=== PATIENT | male | born 1985 | race Caucasian/White ===

== ENCOUNTER 2017-02-25 23:33 | Emergency (ER) | payer SELFPAY ==
[~2017-02-25] VITALS: Ht 175.3 cm; Wt 80.0 kg
[2017-02-25 23:51] VITALS: BP_DIAS 73; PULSE 95; RESP 18; TEMP 97.2; O2SAT 99
[2017-02-25 23:54] VITALS: O2SAT 99
[2017-02-26] MEDS ORDERED: SODIUM CHLORIDE 0.9% FLUSH 10 ML FLUSH IVF PRN
--- NOTE | 2017-02-26 | PD ---
HPI Chief Complaint: Chest Pain Time Seen by Provider: 23:56 Travel History International Travel<30 days: No Contact w/Intl Traveler<30days: No Traveled to known affect area: No History of Present Illness HPI Patient is a 31-year-old male brought into the emergency department by the [employer] for medical clearance. Patient reported chest pain approximately one hour prior to arrival while in police custody patient states the pain radiates across his chest. He states the pain is a 6 out of 10 , he states it hurts to take a deep breath. Patient states that he was told he had a mild heart attack several years ago, he denies any IV or illicit drug use. He does endorse tobacco use. He also has been drinking alcohol today while fishing with his friends. Pain does not radiate to his arm or jaw, he has no shortness of breath, abdominal pain, nausea, headache. PFSH Past Medical History Myocardial Infarction: Yes (MILD PER PATIENT) ?: Not Past Surgical History Other Surgery: Yes (HAND SURGERY ) Social History Alcohol Use: Yes Tobacco Use: Yes Substance Use: No Allergies-Medications (Allergen,Severity, Reaction): Coded Allergies: No Known Allergies (Unverified , 02/25/17) Review of Systems Except as stated in HPI: all other systems reviewed are Neg HENT: No: Headaches Cardiovascular: Positive: Chest Pain or Discomfort Respiratory: Positive: Pleuritic Pain, No: Shortness of Breath Gastrointestinal: No: Nausea, Vomiting, Abdominal Pain Musculoskeletal: Positive: Myalgias Skin: Positive Change in Pigmentation (SUNBURN) Physical Exam Narrative GENERAL: Well-developed, well-nourished, intoxicated-appearing male. Resting in no acute distress. SKIN: Focused skin assessment warm/dry. Patient has sunburn to anterior chest wall, upper back, bilateral upper arms. HEAD: Atraumatic. Normocephalic. EYES: Pupils equal and round. No scleral icterus. No injection or drainage. ENT: No nasal bleeding or discharge. Mucous membranes pink and moist. NECK: Trachea midline. No JVD. CARDIOVASCULAR: Tachycardic. No murmur appreciated. RESPIRATORY: No accessory muscle use. Clear to auscultation. Breath sounds equal bilaterally. GASTROINTESTINAL: Abdomen soft, non-tender, nondistended. Hepatic and splenic margins not palpable. MUSCULOSKELETAL: No obvious deformities. No clubbing. No cyanosis. No edema. NEUROLOGICAL: Awake and alert. No obvious cranial nerve deficits. Motor grossly within normal limits. Normal speech. PSYCHIATRIC: Appropriate mood and affect; insight and judgment normal. Data Data Last Documented VS Vital Signs Date Time Temp Pulse Resp B/P Pulse Ox O2 Delivery O2 Flow Rate FiO2 02/25/17 23:54 99 02/25/17 23:51 97.2 95 18 /73 Orders Electrocardiogram (02/25/17 23:51) Ckmb (Isoenzyme) Profile (02/25/17 23:51) Complete Blood Count With Diff (02/25/17 23:51) Comprehensive Metabolic Panel (02/25/17 23:51) Magnesium (Mg) (02/25/17 23:51) Prothrombin Time / Inr (Pt) (02/25/17:51) Act Partial Throm Time (Ptt) (02/25/17 23:51) Troponin I (02/25/17 23:51) Chest, Single Ap (02/25/17 23:51) Ecg Monitoring (02/25/17 23:51) Iv Access Insert/Monitor (02/25/17 23:51) Oximetry (02/25/17 23:51) Sodium Chloride 0.9% Flush (Ns Flush) (02/26/17 00:00) Alcohol (Ethanol) (02/25/17 23:51) Sodium Chlor 0.9% 1000 Ml Inj (Ns 1000 M (02/26/17 00:00) CKMB (02/25/17 23:59) CKMB% (02/25/17 23:59) Sodium Chlor 0.9% 1000 Ml Inj (Ns 1000 M (02/26/17 01:15) Labs Laboratory Tests Test 02/25/17 23:59 White Blood Count 7.1 TH/MM3 Red Blood Count 4.78 MIL/MM3 Hemoglobin 14.9 GM/DL Hematocrit 43.7 % Mean Corpuscular Volume 91.6 FL Mean Corpuscular Hemoglobin 31.1 PG Mean Corpuscular Hemoglobin 34.0 % Concent Red Cell Distribution Width 15.0 % Platelet Count 217 TH/MM3 Mean Platelet Volume 8.0 FL Neutrophils (%) (Auto) 26.2 % Lymphocytes (%) (Auto) 60.5 % Monocytes (%) (Auto) 9.5 % Eosinophils (%) (Auto) 3.1 % Basophils (%) (Auto) 0.7 % Neutrophils # (Auto) 1.9 TH/MM3 Lymphocytes # (Auto) 4.3 TH/MM3 Monocytes # (Auto) 0.7 TH/MM3 Eosinophils # (Auto) 0.2 TH/MM3 Basophils # (Auto) 0.1 TH/MM3 CBC Comment AUTO DIFF Prothrombin Time 10.3 SEC Prothromb Time International 0.9 RATIO Ratio Activated Partial 30.8 SEC Thromboplast Time Anion Gap 12 MEQ/L Estimat Glomerular Filtration 97 ML/MIN Rate Total Bilirubin 0.2 MG/DL Alanine Aminotransferase 149 U/L (ALT/SGPT) Alkaline Phosphatase 82 U/L Total Creatine Kinase 2723 U/L Creatine Kinase MB 2.4 NG/ML Creatine Kinase MB % 0.1 % Troponin I LESS THAN 0.02 NG/ML Total Protein 7.7 GM/DL Ethyl Alcohol Level 75 MG/DL MDM Medical Decision Making Medical Screen Exam Complete: Yes Emergency Medical Condition: Yes Interpretation(s) Last Impressions Chest X-Ray 02/25/17 7131 Signed Impressions: Service Date/Time: Sunday, February 26, 2017 00:11 - CONCLUSION: No acute disease. Jason Coleman MD Laboratory Tests Test 02/25/17 23:59 White Blood Count 7.1 TH/MM3 Red Blood Count 4.78 MIL/MM3 Hemoglobin 14.9 GM/DL Hematocrit 43.7 % Mean Corpuscular Volume 91.6 FL Mean Corpuscular Hemoglobin 31.1 PG Mean Corpuscular Hemoglobin 34.0 % Concent Red Cell Distribution Width 15.0 % Platelet Count 217 TH/MM3 Mean Platelet Volume 8.0 FL Neutrophils (%) (Auto) 26.2 % Lymphocytes (%) (Auto) 60.5 % Monocytes (%) (Auto) 9.5 % Eosinophils (%) (Auto) 3.1 % Basophils (%) (Auto) 0.7 % Neutrophils # (Auto) 1.9 TH/MM3 Lymphocytes # (Auto) 4.3 TH/MM3 Monocytes # (Auto) 0.7 TH/MM3 Eosinophils # (Auto) 0.2 TH/MM3 Basophils # (Auto) 0.1 TH/MM3 CBC Comment AUTO DIFF Prothrombin Time 10.3 SEC Prothromb Time International 0.9 RATIO Ratio Activated Partial 30.8 SEC Thromboplast Time Anion Gap 12 MEQ/L Estimat Glomerular Filtration 97 ML/MIN Rate Total Bilirubin 0.2 MG/DL Alanine Aminotransferase 149 U/L (ALT/SGPT) Alkaline Phosphatase 82 U/L Total Creatine Kinase 2723 U/L Creatine Kinase MB 2.4 NG/ML Creatine Kinase MB % 0.1 % Troponin I LESS THAN 0.02 NG/ML Total Protein 7.7 GM/DL Ethyl Alcohol Level 75 MG/DL Vital Signs Date Time Temp Pulse Resp B/P Pulse Ox O2 Delivery O2 Flow Rate FiO2 02/25/17 23:54 99 02/25/17 23:51 97.2 95 18 / 99 Differential Diagnosis Chest wall pain versus ACS versus electrolyte abnormality versus acute intoxication versus malingering Narrative Course Patient is a 31-year-old male currently in police custody presenting with chest pain that started after he was arrested. Pain is reproducible on palpation to anterior chest wall, patient is also sunburn from fishing all day. Patient appears intoxicated alcohol use today. Labs and imaging ordered and pending. Chest X-ray shows no acute disease EKG shows sinus rhythm with a rate of 95 CBC is unremarkable Unremarkable coags Chemistry with elevated CK at 2723, a second liter of IV fluids ordered. The metabolic panel was not crossing over the computer system, discussed with [employer] who sent a printed copy of the chemistry results. BUN and creatinine 7 /0.91, GFR is 97, glucose 129, albumin 3.8, calcium 8.2, magnesium 2.1, alkaline phosphatase 82, AST 151, ALT 149, sodium 140, potassium 3.7, chloride 105, carbon dioxide 23.0, anion gap 12, CK-MB 2.4, troponin less than 0.02, total bilirubin 0.2. Alcohol level is 75. Patient has been resting comfortably since he presented to the emergency department. Dr. Rinaldi discussed with Dr. Alcantara, after second liter of IV fluids are completed patient will be discharged to law enforcement. Patient was encouraged to increase fluid intake, avoid excessive alcohol intake. He was encouraged to return to emergency department for any new or worsening symptoms. Patient verbalized understanding of instructions. Patient is stable for discharge. Diagnosis Primary Impression: Rhabdomyolysis Qualified Code: M62.82 - Non-traumatic rhabdomyolysis Additional Impressions: Alcohol intoxication Qualified Code: F10.920 - Alcohol intoxication, uncomplicated Chest wall pain Referrals: [facility] Patient Instructions: Chest Wall Pain (ED), General Instructions, Rhabdomyolysis (ED) Additional Instructions: Increase fluid intake Avoid alcohol intake Follow-up with primary doctor or at the [facility] Return to emergency department for any new or worsening symptoms Med/Other Pt SpecificInfo: No Change to Meds Disposition: [address] [employer] Condition: Stable Bhavana Rojas Feb 26, 2017 00:00
[2017-02-26 00:27] LABS: AUTOMATED NEUTROPHIL # 1.9 TH/MM3 (1.8-7.7); BASOPHIL # 0.1 TH/MM3 (0-0.2); BASOPHIL % 0.7 % (0.0-2.0); EOSINOPHIL # 0.2 TH/MM3 (0-0.4); EOSINOPHIL % 3.1 % (0.0-4.0); HEMATOCRIT 43.7 % (39.0-51.0); LYMPH % 60.5 % (9.0-44.0); LYMPHOCYTE # 4.3 TH/MM3 (1.0-4.8); MEAN CELL VOLUME 91.6 FL (80.0-100.0); MEAN CORPUSCULAR HEMOGLOBIN 31.1 PG (27.0-34.0); MONO % 9.5 % (0.0-8.0); NEUT % 26.2 % (16.0-70.0); PLATELET COUNT 217 TH/MM3 (150-450); RED BLOOD COUNT 4.78 MIL/MM3 (4.50-5.90); WHITE BLOOD COUNT 7.1 TH/MM3 (4.0-11.0)
[2017-02-26 00:28] LABS: APTT (PATIENT) 30.8 SEC (24.3-30.1); INTERNATIONAL NORMALIZED RATIO 0.9 RATIO; PROTHROMBIN TIME - PATIENT 10.3 SEC (9.8-11.6)
[2017-02-26 00:37] LABS: HEMO FLAGS AUTO DIFF
[2017-02-26 00:41] LABS: ALT (GPT) 149 U/L (12-78)
--- NOTE | 2017-02-26 00:42 | RADRPT ---
EXAM DATE/TIME: 02/26/2017 00:11 [facility] COMPARISON: No previous studies available for comparison. INDICATIONS : Chest pain. MEDICAL HISTORY : None. SURGICAL HISTORY : None. ENCOUNTER: Initial ACUITY: 1 day PAIN SCORE: 3/10 LOCATION: Bilateral chest FINDINGS: A single view of the chest demonstrates the lungs to be symmetrically aerated without evidence of mas s, infiltrate or effusion. The cardiomediastinal contours are unremarkable. Osseous structures are intact. CONCLUSION: No acute disease. Jason Coleman MD on February 26, 2017 at 0:40 Board Certified Radiologist. This report was verified electronically.
[2017-02-26 00:55] LABS: ALKALINE PHOSPHATASE 82 U/L (45-117); CREATINE KINASE 2723 U/L (39-308); TOTAL BILIRUBIN ADULT 0.2 MG/DL (0.2-1.0)
[2017-02-26 00:58] LABS: ANION GAP 12 MEQ/L (5-15); AST (GOT) 151 U/L (15-37); BLOOD UREA NITROGEN 7 MG/DL (7-18); CHLORIDE 105 MEQ/L (98-107); GLOMERULAR FILTRATION RATE 97 ML/MIN (>89); MAGNESIUM 2.1 MG/DL (1.5-2.5); POTASSIUM 3.7 MEQ/L (3.5-5.1); SODIUM (NA) 140 MEQ/L (136-145)
[2017-02-26 01:07] LABS: CKMB 2.4 NG/ML (0.5-3.6)
[2017-02-26] MEDS ORDERED: SODIUM CHLOR 0.9% 1000 ML INJ 1,000 ML IV ONE ×2 (01:15)
[2017-02-26 02:03] LABS: SCAN/DIFF AUTO DIFF CONFIRMED
[2017-02-26 02:04] LABS: PLATELET ESTIMATE SMEAR NORMAL (NORMAL); PLATELET MORPHOLOGY NORMAL (NORMAL)
--- NOTE | 2017-02-27 09:56 | EKG ---
Date Performed: 02/25/2017 Time Performed: 23:59:11 PTAGE: 31 years EKG: Sinus rhythm NORMAL ECG NO PREVIOUS TRACING DOCTOR: Chapito Hubbard Interpretating Date/Time 02/27/2017 09:46:12
== END 2017-02-26 03:11 ==
LOC: NEPD 23:33
DX: M62.82 Rhabdomyolysis (principal); F10.129 Alcohol abuse with intoxication, unspecified; Y90.3 Blood alcohol level of 60-79 mg/100 ml; R07.89 Other chest pain; Z72.0 Tobacco use; I25.2 Old myocardial infarction
CPT/HCPCS: 71010; 80053; 80307; 82550; 82552; 83735; 84484; 85025; 85610; 85730; 93005; 99285; J7030